=== PATIENT | female | born 1955 | race Caucasian/White ===

== ENCOUNTER 2019-07-25 08:06 | Observation (INO) | payer OTHER ==
[2019-07-25] MEDS: EPINEPHrine 1 MG INJ
[2019-07-25] MEDS: SOD CHLORIDE 0.9% 1,000 ML IV (06:00)
[2019-07-25] MEDS ORDERED: FENTAnyl 50 MCG/ML VIAL ×2 (10:44→11:40)
[2019-07-25] MEDS ORDERED: MIDAZOLAM 1 MG/ML 2 ML INJ (10:44)
[2019-07-25] MEDS: CEFAZOLIN 2 GM/50 ML (PMX) 50 ML IVPB (11:00)
[2019-07-25] MEDS ORDERED: CEFAZOLIN 1 GM INJ (11:19)
[2019-07-25] MEDS ORDERED: LIDOCAINE 2% (SDV) 5 ML INJ (11:19)
[2019-07-25] MEDS ORDERED: GLYCOPYRROLATE 0.4 MG INJ (11:19)
[2019-07-25] MEDS ORDERED: PROPOFOL 20 ML (11:19)
[2019-07-25] MEDS ORDERED: NEOSTIGMINE 3 MG/3 ML SYRINGE (11:19)
[2019-07-25] MEDS ORDERED: ROCURONIUM 50 MG INJ (11:19)
[2019-07-25] MEDS ORDERED: GENTAMICIN 80 MG INJ (11:31)
[2019-07-25] MEDS: LIDOCAINE 1% (MPF) 30 ML INJ (11:34)
[2019-07-25] MEDS: BUPIVACAINE 0.25%/EPI (SDV) 10 ML INJ (11:34)
[2019-07-25] MEDS: GENTAMICIN 0.1% 15 GM OINT TOP ×2 (11:50→12:00)
[2019-07-25] MEDS ORDERED: ONDANSETRON 4 MG INJ (12:44)
[2019-07-25] MEDS ORDERED: SUGAMMADEX SODIUM 200 MG/2 ML VIAL IV (12:53)
[2019-07-25] MEDS ORDERED: DIPHENHYDRAMINE 50 MG INJ IV (13:30)
[2019-07-25] MEDS ORDERED: HYDROmorphONE 1 MG/5 ML IV SYRINGE IV ×2 (13:30)
[2019-07-25] MEDS ORDERED: FENTAnyl 50 MCG/ML VIAL IV (13:30)
[2019-07-25] MEDS ORDERED: LABETALOL HCL 20MG INJ IV (13:30)
[2019-07-25] MEDS ORDERED: hydrALAzine 20 MG INJ IV (13:30)
[2019-07-25] MEDS: LACTATED RINGER'S 1,000 ML IV ×2 (13:35→16:59)
[2019-07-25] MEDS: MEPERIDINE 25 MG INJ IV (13:37)
[2019-07-25] MEDS: METOCLOPRAMIDE 10 MG INJ IV (14:10)
[2019-07-25] MEDS: ONDANSETRON 4 MG INJ IV ×2 (14:10→18:19)
[2019-07-25] MEDS: morphine 2 MG INJ IV (17:34)
[2019-07-25] MEDS: CEFAZOLIN 1 GM/50 ML (PMX) 50 ML IVPB (18:22)
[2019-07-25] MEDS: MINERAL OIL 30ML CUP PO (20:47)
[2019-07-25] MEDS: HYDROCODONE/APAP (5/325) TAB PO (20:47)
[2019-07-26] MEDS: CEFAZOLIN 1 GM/50 ML (PMX) 50 ML IVPB ×4 (00:30→18:57)
[2019-07-26] MEDS: HYDROCODONE/APAP (5/325) TAB PO (16:29)
[2019-07-26] MEDS: MINERAL OIL 30ML CUP PO (21:30)
[2019-07-27] MEDS: CEFAZOLIN 1 GM/50 ML (PMX) 50 ML IVPB ×3 (00:08→12:11)
[2019-07-27] MEDS: MINERAL OIL 30ML CUP PO ×2 (05:39→13:23)
[2019-07-27 06:07] LABS: ADD MAN DIFF? NO
[2019-07-27 06:13] LABS: WHITE BLOOD COUNT 6.6 10^3/ul (4.8-10.8)
[2019-07-27 06:13] LABS: BASOPHILS % 0.3 % (0.0-2.0); EOSINOPHILS # 0.1 10^3/ul (0.0-0.5); EOSINOPHILS % 1.7 % (0.0-7.0); HEMATOCRIT 38.3 % (37.0-47.0); LYMPHOCYTES # 2.3 10^3/ul (0.8-2.9); LYMPHOCYTES % 33.9 % (15.0-51.0); MEAN CORPUSCULAR HGB CONC 33.9 g/dl (32.0-37.0); MEAN CORPUSCULAR VOLUME 94.3 fl (82.0-101.0); MEAN PLATELET VOLUME 10.3 fl (7.4-10.4); MONOCYTE # 0.6 10^3/ul (0.3-0.9); MONOCYTES % 8.7 % (0.0-11.0); NEUTROPHIL # 3.7 10^3/ul (1.6-7.5); NEUTROPHILS % 55.2 % (39.0-77.0); PLATELET COUNT 177 10^3/UL (140-415); RED BLOOD COUNT 4.06 10^6/ul (4.20-5.40); RED CELL DISTRIBUTION WIDTH 12.3 % (11.5-14.5)
[2019-07-27] MEDS: LACTATED RINGER'S 1,000 ML IV (13:10)
[2019-07-27] MEDS: HYDROCODONE/APAP (5/325) TAB PO (13:23)
== END 2019-07-27 14:56 | disposition home or self-care (01) ==
LOC: SDS 08:06 → PP2 14:39 → SDS 13:17 → PP2 13:17
DX: K64.2 Third degree hemorrhoids (principal); R33.9 Retention of urine, unspecified; E11.9 Type 2 diabetes mellitus without complications; I10 Essential (primary) hypertension
CPT/HCPCS: 46260; 82962; 85025; 88304; 99217; G0378

== ENCOUNTER 2019-08-01 11:33 | Inpatient (IN) | payer OTHER ==
[2019-08-01] MEDS ORDERED: RIVAROXABAN 20 MG TABLET PO (12:00)
[2019-08-01 12:03] LABS: ADD MAN DIFF? NO
[2019-08-01 12:04] LABS: BASOPHILS % 0.5 % (0.0-2.0); EOSINOPHILS # 0.2 10^3/ul (0.0-0.5); EOSINOPHILS % 3.9 % (0.0-7.0); HEMATOCRIT 41.5 % (37.0-47.0); HEMOGLOBIN 14.1 g/dl (12.0-16.0); LYMPHOCYTES % 33.1 % (15.0-51.0); MEAN CORPUSCULAR HEMOGLOBIN 31.9 pg (29.0-33.0); MEAN CORPUSCULAR VOLUME 93.9 fl (82.0-101.0); MEAN PLATELET VOLUME 9.4 fl (7.4-10.4); MONOCYTE # 0.4 10^3/ul (0.3-0.9); MONOCYTES % 6.8 % (0.0-11.0); NEUTROPHIL # 3.4 10^3/ul (1.6-7.5); NEUTROPHILS % 54.7 % (39.0-77.0); PLATELET COUNT 259 10^3/UL (140-415); RED BLOOD COUNT 4.42 10^6/ul (4.20-5.40); RED CELL DISTRIBUTION WIDTH 12.7 % (11.5-14.5)
[2019-08-01 12:04] LABS: WHITE BLOOD COUNT 6.2 10^3/ul (4.8-10.8)
[2019-08-01] MEDS: RIVAROXABAN 15 MG TABLET PO (12:17)
[2019-08-01 12:25] LABS: ANION GAP 9 (5-13); BLOOD UREA NITROGEN 8 mg/dl (7-20); CALCIUM 9.5 mg/dl (8.4-10.2); CARBON DIOXIDE 27 mmol/L (21-31); CHLORIDE 105 mmol/L (97-110); Estimated GFR > 60 mL/min (>60); GLUCOSE 125 mg/dl (70-220); POTASSIUM 3.8 mmol/L (3.5-5.1); SODIUM 141 mmol/L (135-144)
[2019-08-01 12:29] LABS: INR 1.02; PROTIME 13.5 Sec (11.9-14.9); PT RATIO 1.1
[2019-08-01 12:30] LABS: PARTIAL THROMBOPLASTIN TIME 28.9 Sec (23.0-35.0)
[2019-08-01] MEDS ORDERED: ONDANSETRON 4 MG INJ IV ×2 (12:30→13:30)
[2019-08-01] MEDS ORDERED: ACETAMINOPHEN 325 MG TAB PO (12:30)
[2019-08-01] MEDS ORDERED: GLUCOSE GEL 15 GRAM TUBE PO ×2 (16:30)
[2019-08-01] MEDS ORDERED: GLUCAGON 1 MG INJ IM (16:30)
[2019-08-01] MEDS ORDERED: GLUCOSE GEL 15 GRAM TUBE BUCCAL (16:30)
[2019-08-01] MEDS ORDERED: DEXTROSE 50% 50 ML SYRINGE IV ×2 (16:30)
[2019-08-01] MEDS: INSULIN ASPART [NOVOLOG] 3 ML PEN SC ×2 (17:29→21:00)
[2019-08-01] MEDS: IBUPROFEN 600 MG TAB GTB (17:31)
[2019-08-01] MEDS ORDERED: RIVAROXABAN 15 MG TABLET PO (18:05)
[2019-08-01] MEDS: metFORMIN 500 MG TAB PO (21:02)
[2019-08-01] MEDS: MINERAL OIL 30ML CUP PO (21:02)
[2019-08-02 05:22] LABS: ADD MAN DIFF? NO
[2019-08-02 05:24] LABS: BASOPHILS % 0.1 % (0.0-2.0); EOSINOPHILS # 0.3 10^3/ul (0.0-0.5); EOSINOPHILS % 3.3 % (0.0-7.0); HEMATOCRIT 39.7 % (37.0-47.0); HEMOGLOBIN 13.6 g/dl (12.0-16.0); LYMPHOCYTES # 2.2 10^3/ul (0.8-2.9); LYMPHOCYTES % 27.6 % (15.0-51.0); MEAN CORPUSCULAR HEMOGLOBIN 32.1 pg (29.0-33.0); MEAN CORPUSCULAR HGB CONC 34.3 g/dl (32.0-37.0); MEAN CORPUSCULAR VOLUME 93.6 fl (82.0-101.0); MEAN PLATELET VOLUME 9.8 fl (7.4-10.4); MONOCYTE # 0.6 10^3/ul (0.3-0.9); NEUTROPHIL # 4.9 10^3/ul (1.6-7.5); NEUTROPHILS % 61.5 % (39.0-77.0); PLATELET COUNT 266 10^3/UL (140-415); RED BLOOD COUNT 4.24 10^6/ul (4.20-5.40); RED CELL DISTRIBUTION WIDTH 12.9 % (11.5-14.5)
[2019-08-02 05:47] LABS: PROTIME 15.3 Sec (11.9-14.9); PT RATIO 1.2
[2019-08-02 05:48] LABS: PARTIAL THROMBOPLASTIN TIME 34.5 Sec (23.0-35.0)
[2019-08-02] MEDS: INSULIN ASPART [NOVOLOG] 3 ML PEN SC ×4 (08:00→20:27)
[2019-08-02] MEDS: AMLODIPINE 10 MG TAB PO (08:38)
[2019-08-02] MEDS: MINERAL OIL 30ML CUP PO ×2 (08:38→20:37)
[2019-08-02] MEDS ORDERED: HYDROCODONE/APAP (5/325) TAB PO (12:00)
[2019-08-02] MEDS: metFORMIN 500 MG TAB PO (20:36)
[2019-08-02] MEDS: DOCUSATE SODIUM 100 MG CAP PO (20:37)
[2019-08-02] MEDS: ACETAMINOPHEN 325 MG TAB PO (23:44)
[2019-08-03 06:04] LABS: ADD MAN DIFF? NO
[2019-08-03 06:20] LABS: BASOPHILS % 0.3 % (0.0-2.0); EOSINOPHILS # 0.2 10^3/ul (0.0-0.5); EOSINOPHILS % 2.7 % (0.0-7.0); HEMATOCRIT 41.4 % (37.0-47.0); LYMPHOCYTES # 2.4 10^3/ul (0.8-2.9); LYMPHOCYTES % 33.5 % (15.0-51.0); MEAN CORPUSCULAR HEMOGLOBIN 31.7 pg (29.0-33.0); MEAN CORPUSCULAR HGB CONC 33.8 g/dl (32.0-37.0); MEAN CORPUSCULAR VOLUME 93.9 fl (82.0-101.0); MEAN PLATELET VOLUME 9.6 fl (7.4-10.4); MONOCYTE # 0.5 10^3/ul (0.3-0.9); MONOCYTES % 7.7 % (0.0-11.0); NEUTROPHIL # 3.9 10^3/ul (1.6-7.5); NEUTROPHILS % 55.7 % (39.0-77.0); PLATELET COUNT 303 10^3/UL (140-415); RED BLOOD COUNT 4.41 10^6/ul (4.20-5.40); RED CELL DISTRIBUTION WIDTH 12.5 % (11.5-14.5)
[2019-08-03 06:20] LABS: WHITE BLOOD COUNT 7.1 10^3/ul (4.8-10.8)
[2019-08-03 06:45] LABS: ANION GAP 8 (5-13); BLOOD UREA NITROGEN 13 mg/dl (7-20); CALCIUM 9.6 mg/dl (8.4-10.2); CARBON DIOXIDE 25 mmol/L (21-31); CHLORIDE 105 mmol/L (97-110); CREATININE 0.83 mg/dl (0.44-1.00); Estimated GFR > 60 mL/min (>60); GLUCOSE 135 mg/dl (70-220); POTASSIUM 4.1 mmol/L (3.5-5.1); SODIUM 138 mmol/L (135-144)
[2019-08-03] MEDS: INSULIN ASPART [NOVOLOG] 3 ML PEN SC ×4 (08:00→20:22)
[2019-08-03] MEDS: AMLODIPINE 10 MG TAB PO (08:36)
[2019-08-03] MEDS: DOCUSATE SODIUM 100 MG CAP PO ×2 (08:36→20:20)
[2019-08-03] MEDS: MINERAL OIL 30ML CUP PO ×2 (08:36→20:20)
[2019-08-03] MEDS: ACETAMINOPHEN 325 MG TAB PO (11:40)
[2019-08-03] MEDS: metFORMIN 500 MG TAB PO (20:20)
[2019-08-04 05:45] LABS: ADD MAN DIFF? NO
[2019-08-04 05:54] LABS: WHITE BLOOD COUNT 7.1 10^3/ul (4.8-10.8)
[2019-08-04 05:54] LABS: BASOPHILS % 0.4 % (0.0-2.0); EOSINOPHILS # 0.2 10^3/ul (0.0-0.5); HEMATOCRIT 41.2 % (37.0-47.0); HEMOGLOBIN 14.1 g/dl (12.0-16.0); LYMPHOCYTES # 2.3 10^3/ul (0.8-2.9); LYMPHOCYTES % 32.2 % (15.0-51.0); MEAN CORPUSCULAR HEMOGLOBIN 32.3 pg (29.0-33.0); MEAN CORPUSCULAR HGB CONC 34.2 g/dl (32.0-37.0); MEAN CORPUSCULAR VOLUME 94.3 fl (82.0-101.0); MEAN PLATELET VOLUME 9.5 fl (7.4-10.4); MONOCYTE # 0.6 10^3/ul (0.3-0.9); MONOCYTES % 8.6 % (0.0-11.0); NEUTROPHIL # 3.9 10^3/ul (1.6-7.5); NEUTROPHILS % 55.5 % (39.0-77.0); PLATELET COUNT 305 10^3/UL (140-415); RED BLOOD COUNT 4.37 10^6/ul (4.20-5.40); RED CELL DISTRIBUTION WIDTH 12.6 % (11.5-14.5)
[2019-08-04] MEDS: INSULIN ASPART [NOVOLOG] 3 ML PEN SC ×2 (08:00→12:00)
[2019-08-04] MEDS: DOCUSATE SODIUM 100 MG CAP PO (09:30)
[2019-08-04] MEDS: MINERAL OIL 30ML CUP PO (09:30)
[2019-08-04] MEDS: AMLODIPINE 10 MG TAB PO (09:30)
[2019-08-04] MEDS: ACETAMINOPHEN 325 MG TAB PO (12:12)
== END 2019-08-04 16:40 | disposition home or self-care (01) | DRG 301 ==
LOC: E/R 11:33 → PP2 12:05
DX: I82.4Z2 Acute embolism and thrombosis of unspecified deep veins of left distal lower extremity (principal); I10 Essential (primary) hypertension; E11.9 Type 2 diabetes mellitus without complications; E78.5 Hyperlipidemia, unspecified; Z98.890 Other specified postprocedural states
CPT/HCPCS: 36415; 80048; 82962; 85025; 85610; 85730; 87081; 93971; 99285-25